=== PATIENT | male | born 1995 | race Caucasian/White ===

== ENCOUNTER 2018-07-08 20:10 | Emergency (ER) | payer MEDICAID ==
[~2018-07-08] VITALS: Ht 170.2 cm; Wt 56.1 kg
[2018-07-08 20:15] VITALS: BP 127/83
[2018-07-08] MEDS ORDERED: ondansetron 4mg rapidly disintigrating tab PO ONE (20:35)
[2018-07-08] MEDS ORDERED: famotidine 10mg tablet PO ONE (20:35)
[2018-07-08] MEDS ORDERED: famotidine 10mg tablet PO SCH (20:35)
[2018-07-08 20:40] LABS: CLARITY,URINE CLEAR (Clear); COLOR,URINE YELLOW (Yellow); GLUCOSE, URINE NEGATIVE (Neg); KETONES,URINE NEGATIVE (Neg); LEUKOCYTE ESTERASE ,URINE NEGATIVE (Neg); NITRITES, URINE NEGATIVE (Neg); OCCULT BLOOD,URINE NEGATIVE (Neg); PH,URINE 6.5 (4.8-8.0); PROTEIN,URINE TRACE mg/dl (Neg); UROBILINOGEN,URINE 0.2 E.U/dL (0.2-1.0)
[2018-07-08] MEDS ORDERED: famotidine 20mg tablet PO ONE (20:40)
[2018-07-08 20:41] LABS: UA COLLECTION TYPE CLN CATCH MIDSTREAM
[2018-07-08 20:47] LABS: BACTERIA,URINE FEW /HPF (Neg); MUCUS STRANDS MODERATE /LPF (Neg); RBC,URINE NONE SEEN /HPF (0-2); SQUAMOUS EPITHELIAL CELL,UR FEW /LPF (FEW); WBC,URINE 0-4 /HPF (0-4)
[2018-07-08 20:48] LABS: AMORPHOUS URATES 1+; HYALINE CASTS 0-3 /LPF (NEGATIVE)
[2018-07-08 21:03] LABS: BASOPHILS % (AUTO) 0.2 % (0-1); EOSINOPHILS # (AUTO) 0.1 X10'3 (0-0.9); HEMATOCRIT 46.3 % (42.0-52.0); HEMOGLOBIN 15.1 g/dl (14.0-17.9); LYMPHOCYTES # (AUTO) 3.1 X10'3 (1.1-4.8); LYMPHOCYTES % (AUTO) 36.7 % (21-51); MEAN CORPUSCULAR HEMOGLOBIN 30.5 PG (27.0-31.0); MEAN CORPUSCULAR HGB CONC 32.7 % (33.0-36.5); MEAN CORPUSCULAR VOLUME 93.3 FL (78-98); MEAN PLATELET VOLUME 8.1 FL (7.4-10.4); MONOCYTES # (AUTO) 0.4 X10'3 (0-0.9); MONOCYTES % (AUTO) 5.2 % (2-12); NEUTROPHILS # (AUTO) 4.8 X10'3 (1.8-7.7); NEUTROPHILS % (AUTO) 56.9 % (42-75); PLATELET COUNT 191 X10'3 (140-440); RED BLOOD COUNT 4.96 X10'6 (4.70-6.10); RED CELL DISTRIBUTION WIDTH 13.9 % (11.5-14.5); WHITE BLOOD COUNT 8.5 X10'3 (4.5-11.0)
[2018-07-08 21:16] LABS: INR 1.1 INR; PROTHROMBIN TIME 10.7 SECONDS (9.0-12.0)
[2018-07-08 21:17] LABS: ALANINE AMINOTRANSFERASE 32 U/L (12-78); ALBUMIN 4.3 G/DL (3.4-5.0); ALBUMIN/GLOBULIN RATIO 1.3 (1.1-1.5); ALKALINE PHOSPHATASE 84 IU/L (46-116); ANION GAP 9 (8-16); ASPARTATE AMINO TRANSFERASE 19 U/L (10-37); BILIRUBIN,TOTAL 0.7 MG/DL (0.1-1.0); BLOOD UREA NITROGEN 15 MG/DL (7-18); BUN/CREATININE RATIO 13.3 (5.4-32.0); CHLORIDE 104 MMOL/L (99-107); CREATININE 1.13 MG/DL (0.60-1.10); GLUCOSE 92 MG/DL (70-104); LIPASE 459 U/L (73-393); SODIUM 140 MMOL/L (135-145); TOTAL CARBON DIOXIDE 27.3 MMOL/L (24-32); TOTAL PROTEIN 7.6 G/DL (6.4-8.2); eGFR 81 ML/MIN
[2018-07-08] MEDS ORDERED: ONDA4TAB9 SL (21:22)
[2018-07-08] MEDS ORDERED: LORazepam 1 MG tablet PO ONE (21:30)
== END 2018-07-08 21:37 | disposition home or self-care (01) ==
LOC: ER 20:11
DX: K92.0 Hematemesis (principal)
CPT/HCPCS: 36415; 71045; 80053; 81001; 83690; 85025; 85610; 99285

== ENCOUNTER 2018-07-08 22:18 | Emergency (ER) | payer MEDICAID ==
[~2018-07-08] VITALS: Ht 170.2 cm; Wt 56.7 kg
[~2018-07-08 22:18] MED LIST: ONDA4TAB9 SL
[2018-07-08 22:38] VITALS: BP 115/68
== END 2018-07-09 00:08 | disposition home or self-care (01) ==
LOC: ER 22:19
DX: R55 Syncope and collapse (principal); F41.0 Panic disorder [episodic paroxysmal anxiety]
CPT/HCPCS: 70450; 93005; 99284

== ENCOUNTER 2018-08-28 10:11 | Inpatient (IN) | payer MEDICAID ==
[~2018-08-28] VITALS: Ht 170.2 cm; Wt 49.1 kg
[2018-08-28] MEDS ORDERED: normal saline 1000ML IV soln IVB ONE ×2 (10:15)
--- NOTE | 2018-08-28 10:21 | NUR ---
RT IN ROOM 1021
[2018-08-28 10:27] LABS: EOSINOPHILS % (AUTO) 0.1 % (0-6); MEAN CORPUSCULAR HGB CONC 33.8 % (33.0-36.5)
--- NOTE | 2018-08-28 10:29 | NUR ---
PAGED RT FOR STAT ABG [id number]
[2018-08-28 10:30] LABS: BASOPHILS # (AUTO) 0.4 X10'3 (0-0.2); BASOPHILS % (AUTO) 1.8 % (0-1); HEMATOCRIT 49.3 % (42.0-52.0); HEMOGLOBIN 16.6 g/dl (14.0-17.9); LYMPHOCYTES # (AUTO) 0.9 X10'3 (1.1-4.8); LYMPHOCYTES % (AUTO) 4.1 % (21-51); MEAN CORPUSCULAR HEMOGLOBIN 31.3 PG (27.0-31.0); MEAN CORPUSCULAR VOLUME 92.5 FL (78-98); MONOCYTES % (AUTO) 4.6 % (2-12); NEUTROPHILS % (AUTO) 89.4 % (42-75); PLATELET COUNT 200 X10'3 (140-440); RED BLOOD COUNT 5.33 X10'6 (4.70-6.10); RED CELL DISTRIBUTION WIDTH 13.5 % (11.5-14.5); WHITE BLOOD COUNT 22.3 X10'3 (4.5-11.0)
[2018-08-28] MEDS ORDERED: CefTRIAXone 2gm/D5W 50ml 50 ML IV ONE (10:35)
[2018-08-28] MEDS ORDERED: azithromycin/NS 500mg/250ml 250 ML IV ONE (10:35)
[2018-08-28 10:46] LABS: ABG BASE EXCESS -5.8 mmol/L (-2.0-3.0); ABG HCO3 20.8 mmol/L (22.0-26.0); ABG OXYGEN SATURATION 91.6 % (95-98); ABG PCO2 (T) 44.9 mmHg (35.0-48.0); ABG PH (T) 7.284 (7.350-7.450); ABG PO2 (T) 65.1 mmHg (83-108); ALLEN'S TEST Positive; FCOHb 4.6 % (0.5-1.5); FLOW 15 L/min; FMetHb 0.1 % (0.3-1.12); FO2Hb 87.3 % (94-100); PATIENT TEMPERATURE 37.2; TOTAL HEMOGLOBIN 14.9 G/dl (14.0-18.0)
[2018-08-28 10:53] LABS: CLARITY,URINE CLEAR (Clear); COLOR,URINE YELLOW (Yellow); GLUCOSE, URINE NEGATIVE (Neg); KETONES,URINE NEGATIVE (Neg); LEUKOCYTE ESTERASE ,URINE NEGATIVE (Neg); NITRITES, URINE NEGATIVE (Neg); OCCULT BLOOD,URINE LARGE (Neg); PROTEIN,URINE TRACE mg/dl (Neg); UROBILINOGEN,URINE 0.2 E.U/dL (0.2-1.0)
[2018-08-28 10:55] LABS: UA COLLECTION TYPE FOLEY CATH
[2018-08-28 10:57] LABS: PLATELET ESTIMATE NORMAL; TOTAL CELLS COUNTED 100
[2018-08-28 10:59] LABS: URINE AMPHETAMINE SCREEN NEGATIVE (Neg); URINE BARBITUATE SCREEN NEGATIVE (Neg); URINE BENZODIAZEPINES SCREEN POSITIVE (Neg); URINE CANNABINOID SCREEN POSITIVE (Neg); URINE COCAINE SCREEN NEGATIVE (Neg); URINE METHADONE SCREEN POSITIVE (Neg); URINE OPIATE SCREEN NEGATIVE (Neg); URINE PHENCYCLIDINE SCREEN NEGATIVE (Neg)
[2018-08-28 11:06] LABS: BACTERIA,URINE NONE SEEN /HPF (Neg); RBC,URINE 0-2 /HPF (0-2); SQUAMOUS EPITHELIAL CELL,UR NONE SEEN /LPF (FEW)
[2018-08-28 11:22] LABS: INR 1.1 INR; PARTIAL THROMBOPLASTIN TIME 29 SECONDS (22-32); PROTHROMBIN TIME 10.9 SECONDS (9.0-12.0)
[2018-08-28 11:25] LABS: ALANINE AMINOTRANSFERASE 63 U/L (12-78); ALBUMIN 3.6 G/DL (3.4-5.0); ALBUMIN/GLOBULIN RATIO 1.1 (1.1-1.5); ALKALINE PHOSPHATASE 87 IU/L (46-116); ANION GAP 15 (8-16); ASPARTATE AMINO TRANSFERASE 64 U/L (10-37); BILIRUBIN,TOTAL 0.6 MG/DL (0.1-1.0); BLOOD UREA NITROGEN 13 MG/DL (7-18); BUN/CREATININE RATIO 10.8 (5.4-32.0); CALCIUM 7.9 MG/DL (8.5-10.1); CHLORIDE 103 MMOL/L (99-107); GLUCOSE 157 MG/DL (70-104); POTASSIUM 3.8 MMOL/L (3.5-5.1); SODIUM 140 MMOL/L (135-145); TOTAL CARBON DIOXIDE 21.7 MMOL/L (24-32); TOTAL PROTEIN 6.9 G/DL (6.4-8.2); eGFR 76 ML/MIN
[2018-08-28] MEDS ORDERED: iohexol 350MG/ML 100ml bottle IV ONE (11:28)
[2018-08-28 11:32] LABS: ETHANOL < 0.010 GM/DL (0.0-0.010)
[2018-08-28] MEDS ORDERED: DULO20CA17 PO (11:38)
[2018-08-28] MEDS ORDERED: ALPR1TAB7 PO (11:38)
[2018-08-28] MEDS ORDERED: normal saline 1000ml 1,000 ML IV ONE (12:05)
[2018-08-28 13:01] LABS: ABG BASE EXCESS -6.1 mmol/L (-2.0-3.0); ABG HCO3 22.5 mmol/L (22.0-26.0); ABG OXYGEN SATURATION 93.2 % (95-98); ABG PCO2 (T) 57.1 mmHg (35.0-48.0); ABG PH (T) 7.213 (7.350-7.450); ABG PO2 (T) 76.7 mmHg (83-108); ALLEN'S TEST Positive; FCOHb 2.7 % (0.5-1.5); FLOW 10 L/min; FMetHb 0.3 % (0.3-1.12); FO2Hb 90.4 % (94-100); TOTAL HEMOGLOBIN 14.6 G/dl (14.0-18.0)
--- NOTE | 2018-08-28 13:19 | NUR ---
[id number]
[2018-08-28] MEDS ORDERED: etomidate 2mg/ml inj. ONE (14:00)
[2018-08-28] MEDS ORDERED: rocuronium 10mg/ml inj IV ONE (14:00)
--- NOTE | 2018-08-28 16:52 | NUR ---
OFF BIPAP PLACED ON 4LNC 94% PT IS APPROPRIATE HR 115, RR 20
--- NOTE | 2018-08-28 17:14 | NUR ---
rt took off bipap hr and saturation and mentation improved
[2018-08-28 17:50] LABS: ABG BASE EXCESS -0.3 mmol/L (-2.0-3.0); ABG HCO3 26.8 mmol/L (22.0-26.0); ABG OXYGEN SATURATION 92.7 % (95-98); ABG PCO2 (T) 53.5 mmHg (35.0-48.0); ABG PH (T) 7.317 (7.350-7.450); ABG PO2 (T) 66.6 mmHg (83-108); ALLEN'S TEST Positive; FCOHb 1.2 % (0.5-1.5); FMetHb 0.3 % (0.3-1.12); FO2Hb 91.3 % (94-100); TOTAL HEMOGLOBIN 14.8 G/dl (14.0-18.0)
--- NOTE | 2018-08-28 18:50 | NUR ---
I have received report from Nydia, ER nurse and had the opportunity to ask questions and assume patient care.
[2018-08-28 19:00] VITALS: BP 129/73
--- NOTE | 2018-08-28 19:30 | NUR ---
PT arrived to unit via gurney. PT was able to get off of gurney and move to ICU bed himself, connected to bedside monitor . PT is a/o answering questions. PT is receiving 6L O2 to NC, tolerating well, O2 sat >95%. VSS. PT has multiple piercing, attempted to replace nipple piercings but was unsuccessful d/t him dropping an attachment on the floor. PT does not have any belongings with him, his father took them home with him. Bed is locked and low. Call light is within reach. Will continue to monitor.
[2018-08-28] MEDS ORDERED: potassium Cl 20 mEq SR tablet PO PRN ×2 (19:55)
[2018-08-28] MEDS ORDERED: ondansetron/PF 4mg/2ml inj IV PRN (19:55)
[2018-08-28] MEDS ORDERED: potassium Cl 40MEQ/NS 500ml 500 ML IV PRN ×2 (19:55)
[2018-08-28] MEDS ORDERED: ipratropium/albuterol 3ml nebule NEB PRN (19:55)
[2018-08-28] MEDS ORDERED: magnesium hydroxide 30ml (MOM) UD suspension PO PRN (19:55)
[2018-08-28] MEDS ORDERED: acetaminophen 325mg tablet PO PRN ×2 (19:55)
[2018-08-28 20:00] VITALS: BP 112/69
[2018-08-28] MEDS: K, MAG and/or Phos replacement - Verify level? MC SCH (20:00)
[2018-08-28] MEDS ORDERED: HYDROcodone/acetaminophen 10/325mg tab PO PRN (20:05)
[2018-08-28] MEDS ORDERED: HYDROcodone/acetaminophen 5mg/325mg tablet PO PRN (20:05)
[2018-08-28 21:00] VITALS: BP 133/76
[2018-08-28] MEDS: heparin, porcine 5000 units/ml vial SQ SCH (21:12)
[2018-08-28] MEDS: docusate sod 100mg capsule PO SCH (21:12)
[2018-08-28 22:00] VITALS: BP 111/67
--- NOTE | 2018-08-28 22:30 | NUR ---
PT resting with no s/s of distress noted at this time. VSS. PT is sleepy, attempted to use the urinal but fell asleep during and dumped urine out all over himself. Gown and linen changed. Bed is locked and low. Call light is within reach. Will continue to monitor.
[2018-08-28 23:00] VITALS: BP 114/64
[2018-08-29] VITALS (15 sets, daily range): BP systolic 96–119; BP diastolic 49–64
--- NOTE | 2018-08-29 01:00 | NUR ---
PT is sleeping with no s/s of distress noted. O2 at 4L to NC, PT tolerating well, O2 sat >94%. Bed is locked and low. Call light is within reach. Will continue to monitor.
--- NOTE | 2018-08-29 06:45 | NUR ---
Patient in room ICU 2039. I have received report from Gabriela BOWLING and had the opportunity to ask questions and assume patient care.
--- NOTE | 2018-08-29 06:46 | NUR ---
Problems reprioritized. Patient report given, questions answered & plan of care reviewed with Anca BOWLING.
[2018-08-29] MEDS ORDERED: pantoprazole 40mg Tablet.DR PO SCH (07:30)
[2018-08-29 07:43] LABS: BASOPHILS % (AUTO) 0.2 % (0-1); EOSINOPHILS # (AUTO) 0.1 X10'3 (0-0.9); EOSINOPHILS % (AUTO) 0.6 % (0-6); HEMATOCRIT 39.8 % (42.0-52.0); HEMOGLOBIN 13.5 g/dl (14.0-17.9); LYMPHOCYTES # (AUTO) 1.3 X10'3 (1.1-4.8); LYMPHOCYTES % (AUTO) 10.4 % (21-51); MEAN CORPUSCULAR HEMOGLOBIN 31.3 PG (27.0-31.0); MEAN CORPUSCULAR HGB CONC 33.8 % (33.0-36.5); MEAN CORPUSCULAR VOLUME 92.4 FL (78-98); MEAN PLATELET VOLUME 8.8 FL (7.4-10.4); MONOCYTES # (AUTO) 1.1 X10'3 (0-0.9); MONOCYTES % (AUTO) 8.7 % (2-12); NEUTROPHILS # (AUTO) 10.2 X10'3 (1.8-7.7); NEUTROPHILS % (AUTO) 80.1 % (42-75); PLATELET COUNT 126 X10'3 (140-440); RED BLOOD COUNT 4.31 X10'6 (4.70-6.10); RED CELL DISTRIBUTION WIDTH 13.2 % (11.5-14.5); WHITE BLOOD COUNT 12.7 X10'3 (4.5-11.0)
[2018-08-29 07:56] LABS: ALANINE AMINOTRANSFERASE 66 U/L (12-78); ALBUMIN 3.1 G/DL (3.4-5.0); ALBUMIN/GLOBULIN RATIO 0.9 (1.1-1.5); ALKALINE PHOSPHATASE 67 IU/L (46-116); ANION GAP 10 (8-16); ASPARTATE AMINO TRANSFERASE 114 U/L (10-37); BLOOD UREA NITROGEN 13 MG/DL (7-18); BUN/CREATININE RATIO 12.3 (5.4-32.0); CALCIUM 8.6 MG/DL (8.5-10.1); CHLORIDE 102 MMOL/L (99-107); CREATININE 1.06 MG/DL (0.60-1.10); GLUCOSE 93 MG/DL (70-104); MAGNESIUM 1.6 MG/DL (1.5-2.4); PHOSPHORUS 2.3 MG/DL (2.3-4.5); POTASSIUM 3.6 MMOL/L (3.5-5.1); SODIUM 139 MMOL/L (135-145); TOTAL CARBON DIOXIDE 27.2 MMOL/L (24-32); TOTAL PROTEIN 6.5 G/DL (6.4-8.2); eGFR 87 ML/MIN
[2018-08-29 07:57] LABS: INR 1.2 INR; PARTIAL THROMBOPLASTIN TIME 33 SECONDS (22-32)
[2018-08-29] MEDS ORDERED: azithromycin/NS 500mg/250ml 250 ML IV SCH (08:00)
[2018-08-29] MEDS ORDERED: CefTRIAXone 2gm/D5W 50ml 50 ML IV SCH (08:00)
[2018-08-29] MEDS: K, MAG and/or Phos replacement - Verify level? MC SCH (08:00)
[2018-08-29] MEDS: docusate sod 100mg capsule PO SCH (09:05)
[2018-08-29] MEDS: heparin, porcine 5000 units/ml vial SQ SCH (09:07)
[2018-08-29] MEDS ORDERED: FLU VACC QUAD 2018(5 YR UP)/PF 60 MCG/0.5 ML SYRINGE IM ONE (10:00)
--- NOTE | 2018-08-29 10:35 | NUR ---
Physician rounding at this time, made MD aware of patient status. MD states he can discharge home.
--- NOTE | 2018-08-29 13:00 | NUR ---
Spoke to Blanca Lamb regarding patient's discharge, states she will put orders in.
--- NOTE | 2018-08-29 13:27 | NUR ---
Malnutrition Consult: Pt admit sp/ methadone and benzo OD w/ hx anxiety; not intentional suicide attempt per MD note. Pt recently lost mother. Pt has no edema/wounds, weakness, or wt loss hx maintaining low body weight. PO pending. At this time lacks 2 minimum criteria for malnutrition; will monitor for PO hx and additional criteria this admit. Addendum: 08/29/18 at [address] Amended: Links added.
--- NOTE | 2018-08-29 14:30 | NUR ---
Patient discharged via W/C and private vehicle without event at this time. Discussed discharge instructions and education for going home, sent home incentive spirometer in which patient was performing very well at, no new medications ordered, questions answered, IV removed with cath intact and Tele dc'd. Patient eager to go home.
== END 2018-08-29 14:28 | disposition home or self-care (01) | DRG 812 ==
LOC: ER 10:12 → ED HOLD 17:22 → ICU 2S 19:12
PROVIDERS: ADMIT Internal Medicine Critical Care Medicine; ATTEND Internal Medicine Critical Care Medicine
PROC: 5A09357 Assistance with Respiratory Ventilation, Less than 24 Consecutive Hours, Continuous Positive Airway Pressure (ICD-10-PCS; principal; 2018-08-28)
PROC: B32T1ZZ Computerized Tomography (CT Scan) of Left Pulmonary Artery using Low Osmolar Contrast (ICD-10-PCS; 2018-08-28)
PROC: B3201ZZ Computerized Tomography (CT Scan) of Thoracic Aorta using Low Osmolar Contrast (ICD-10-PCS; 2018-08-28)
PROC: B32S1ZZ Computerized Tomography (CT Scan) of Right Pulmonary Artery using Low Osmolar Contrast (ICD-10-PCS; 2018-08-28)
PROC: 3E02340 Introduction of Influenza Vaccine into Muscle, Percutaneous Approach (ICD-10-PCS; 2018-08-29)
DX: T40.3X1A Poisoning by methadone, accidental (unintentional), initial encounter (principal); A41.9 Sepsis, unspecified organism; J18.9 Pneumonia, unspecified organism; T42.4X1A Poisoning by benzodiazepines, accidental (unintentional), initial encounter; R32 Unspecified urinary incontinence; F41.9 Anxiety disorder, unspecified; R09.02 Hypoxemia; Z23 Encounter for immunization; Z79.899 Other long term (current) drug therapy; Y92.89 Other specified places as the place of occurrence of the external cause
CPT/HCPCS: 36415; 36600; 71045; 71275; 80053; 80305; 80320; 81001; 82803; 83605; 83735; 83880; 84100; 84145; 85018; 85025; 85610; 85730; 87040; 87070; 87077; 87088; 87186; 93005; 94660; 94760; 96365; 96368; 99291; 99292; G0378; J0456; J0696; J1644; J3490; Q2037; Q9967

== ENCOUNTER 2019-08-18 06:13 | Emergency (ER) | payer MEDICAID ==
[~2019-08-18] VITALS: Ht 175.3 cm; Wt 61.5 kg
[~2019-08-18 06:13] MED LIST changes: +ALPR1TAB7 PO; +DULO20CA18 PO; -ONDA4TAB9 SL
[2019-08-18] MEDS ORDERED: haloperidol lactate 5mg/ml inj IV ONE (06:35)
[2019-08-18] MEDS ORDERED: LIDOcaine 4% (40 mg/ml) topical solution 50ml MM ONE (06:35)
[2019-08-18] MEDS ORDERED: haloperidol lactate 5mg/ml inj IM ONE (06:45)
--- NOTE | 2019-08-18 06:52 | NUR ---
APPLY OXYGEN NC AT 3 LITERS ORDERED BY ANTONELLA ZARAGOZA.
[2019-08-18] MEDS ORDERED: METO-292 PO (07:32)
[2019-08-18 07:46] VITALS: BP 157/81
== END 2019-08-18 07:48 | disposition home or self-care (01) ==
LOC: ER 06:14
DX: G43.909 Migraine, unspecified, not intractable, without status migrainosus (principal); Z79.899 Other long term (current) drug therapy
CPT/HCPCS: 96372; 99283; J1630

== ENCOUNTER 2020-04-03 12:22 | Emergency (ER) | payer MEDICAID ==
[~2020-04-03] VITALS: Ht 175.3 cm; Wt 63.6 kg
[~2020-04-03 12:22] MED LIST changes: +METO-292 PO
[2020-04-03 12:43] VITALS: BP 133/82
== END 2020-04-03 13:10 | disposition home or self-care (01) ==
LOC: ER 12:23
DX: S39.91XA Unspecified injury of abdomen, initial encounter (principal); G43.909 Migraine, unspecified, not intractable, without status migrainosus; F41.9 Anxiety disorder, unspecified; Z79.899 Other long term (current) drug therapy; X58.XXXA Exposure to other specified factors, initial encounter; Y93.89 Activity, other specified; Y92.89 Other specified places as the place of occurrence of the external cause; Y99.8 Other external cause status
CPT/HCPCS: 99282

== ENCOUNTER 2020-12-14 08:14 | Emergency (ER) | payer MEDICAID ==
[~2020-12-14] VITALS: Ht 175.3 cm; Wt 63.6 kg
[2020-12-14] MEDS ORDERED: dexamethasone sod phosphate 10mg/ml inj IV STA (08:51)
[2020-12-14] MEDS ORDERED: metoclopramide 5 mg/ml inj IV ONE (08:55)
[2020-12-14] MEDS ORDERED: LORazepam 2 mg/ml vial IV ONE (08:55)
[2020-12-14] MEDS ORDERED: normal saline 1000ML IV soln IVB ONE (08:55)
[2020-12-14 09:36] LABS: BASOPHILS % (AUTO) 0.7 % (0-1); EOSINOPHILS # (AUTO) 0.1 X10'3 (0-0.9); EOSINOPHILS % (AUTO) 1.9 % (0-6); HEMATOCRIT 46.9 % (42.0-52.0); HEMOGLOBIN 15.5 g/dl (14.0-17.9); LYMPHOCYTES # (AUTO) 1.9 X10'3 (1.1-4.8); LYMPHOCYTES % (AUTO) 38.2 % (21-51); MEAN CORPUSCULAR HEMOGLOBIN 31.8 PG (27.0-31.0); MEAN CORPUSCULAR HGB CONC 33.1 g/dL (33.0-36.5); MEAN CORPUSCULAR VOLUME 96.1 FL (78-98); MEAN PLATELET VOLUME 7.6 FL (7.4-10.4); MONOCYTES # (AUTO) 0.4 X10'3 (0-0.9); MONOCYTES % (AUTO) 7.9 % (2-12); NEUTROPHILS # (AUTO) 2.6 X10'3 (1.8-7.7); NEUTROPHILS % (AUTO) 51.3 % (42-75); PLATELET COUNT 241 X10'3 (140-440); RED BLOOD COUNT 4.88 X10'6 (4.70-6.10); RED CELL DISTRIBUTION WIDTH 13.1 % (11.5-14.5); WHITE BLOOD COUNT 5.1 X10'3 (4.5-11.0)
[2020-12-14 09:52] LABS: ALANINE AMINOTRANSFERASE 31 U/L (12-78); ALBUMIN 4.4 G/DL (3.4-5.0); ALBUMIN/GLOBULIN RATIO 1.2 (1.1-1.5); ALKALINE PHOSPHATASE 76 IU/L (46-116); ANION GAP 17 (8-16); ASPARTATE AMINO TRANSFERASE 28 U/L (10-37); BILIRUBIN,TOTAL 0.7 MG/DL (0.1-1.0); BLOOD UREA NITROGEN 13 MG/DL (7-18); BUN/CREATININE RATIO 12.3 (5.4-32.0); CALCIUM 9.3 MG/DL (8.5-10.1); CHLORIDE 104 MMOL/L (99-107); CREATININE 1.06 MG/DL (0.60-1.10); GLUCOSE 100 MG/DL (70-104); POTASSIUM 3.6 MMOL/L (3.5-5.1); SODIUM 142 MMOL/L (135-145); TOTAL CARBON DIOXIDE 21.2 MMOL/L (24-32); eGFR 86 ML/MIN
[2020-12-14] MEDS ORDERED: ketorolac trometh. 30mg/ml inj. IV ONE (11:15)
--- NOTE | 2020-12-14 12:00 | NUR ---
relieving RN for break, medicated pt per MD order, pt c/o headache 12/09, has ride home with family
[2020-12-14 12:22] VITALS: BP 140/94
== END 2020-12-14 12:25 | disposition home or self-care (01) ==
LOC: ER 08:15
DX: G43.909 Migraine, unspecified, not intractable, without status migrainosus (principal); F41.9 Anxiety disorder, unspecified; R11.2 Nausea with vomiting, unspecified; Z79.899 Other long term (current) drug therapy
CPT/HCPCS: 36415; 70450; 80053; 85025; 85651; 96361; 96374; 96375; 99285; J1100; J1885; J2060; J2765; J7030

== ENCOUNTER 2022-11-26 04:10 | Emergency (ER) | payer MEDICAID ==
[~2022-11-26] VITALS: Ht 175.3 cm; Wt 61.3 kg
[2022-11-26] MEDS ORDERED: triamcinolone acetonide 40mg/ml inj IJ ONE (05:30)
[2022-11-26] MEDS ORDERED: LIDOcaine 1% 30ml preserv. free vial IJ STA (05:30)
[2022-11-26] MEDS ORDERED: LIDOCAINE 2%/EPI 1:100,000 inj. Multi-dose 20 ML VIAL IJ STA (05:42)
[2022-11-26 06:09] VITALS: BP 140/90
== END 2022-11-26 06:11 | disposition home or self-care (01) ==
LOC: ER 04:11
DX: M25.511 Pain in right shoulder (principal); F17.200 Nicotine dependence, unspecified, uncomplicated; F41.9 Anxiety disorder, unspecified; G43.909 Migraine, unspecified, not intractable, without status migrainosus; Z79.899 Other long term (current) drug therapy; X58.XXXA Exposure to other specified factors, initial encounter; Y93.89 Activity, other specified; Y92.89 Other specified places as the place of occurrence of the external cause; Y99.8 Other external cause status
CPT/HCPCS: 20610; 23650; 73030; 99284

== ENCOUNTER 2023-02-04 04:15 | Emergency (ER) | payer MEDICAID ==
[~2023-02-04] VITALS: Ht 175.3 cm; Wt 63.6 kg
[2023-02-04 04:19] VITALS: BP 133/100
[2023-02-04] MEDS ORDERED: ketorolac trometh. 30mg/ml inj. IV ONE (04:40)
[2023-02-04] MEDS ORDERED: proCHLORperazine 10 MG/2 ml inj IV ONE (04:40)
[2023-02-04] MEDS ORDERED: acetaminophen 325mg tablet PO ONE (04:40)
[2023-02-04] MEDS ORDERED: normal saline 1000ml 1,000 ML IV ONE (04:40)
--- NOTE | 2023-02-04 04:47 | NUR ---
ivp given by hemodialysis charge nurse
--- NOTE | 2023-02-04 06:09 | NUR ---
iv dc'd pt being discharged dressing applied
== END 2023-02-04 06:11 | disposition home or self-care (01) ==
LOC: ER 04:15
DX: G43.909 Migraine, unspecified, not intractable, without status migrainosus (principal)
CPT/HCPCS: 96361; 96374; 96375; 99284; J0780; J1885; J7030

== ENCOUNTER 2023-05-01 19:40 | Emergency (ER) | payer MEDICAID ==
[~2023-05-01] VITALS: Ht 175.3 cm; Wt 55.6 kg
[2023-05-01 19:50] VITALS: TEMP 97.9
--- NOTE | 2023-05-01 20:12 | NUR ---
PT PRESENTS TO THE ER WITH MIGRAINE PT STATES " I SEE A NEUROLOGIST IN [facility] FOR MY MIGRAINES BUT THEY HAVE NEVER BEEN ABLE TO FIGURE IT OUT, BENITA TRIED EVERY MEDICATION AND NOTHING HELPS." PT CURRENTLY N/V IN ROOM.
[2023-05-01] MEDS ORDERED: ondansetron 4mg rapidly disintigrating tab PO ONE (20:15)
[2023-05-01 20:41] VITALS: BP 116/91; PULSE 80; O2SAT 100
--- NOTE | 2023-05-01 21:13 | NUR ---
PO ZOFRAN 4MG INEFFECTIVE, PROVIDER TO BE NOTIFIED.
[2023-05-01] MEDS ORDERED: metoclopramide 5 mg/ml inj IM ONE (21:30)
[2023-05-01] MEDS ORDERED: diphenhydrAMINE 50 mg/ml inj IM ONE (21:30)
[2023-05-01] MEDS ORDERED: ketorolac tromethamine 15mg/ml inj. IM ONE (21:30)
[2023-05-01 21:41] VITALS: RESP 17
[2023-05-01] MEDS ORDERED: haloperidol lactate 5mg/ml inj IM ONE (22:05)
[2023-05-01] MEDS ORDERED: LORazepam 2 mg/ml vial IM ONE (22:05)
== END 2023-05-01 22:12 | disposition home or self-care (01) ==
LOC: ER 19:42
DX: G43.909 Migraine, unspecified, not intractable, without status migrainosus (principal); Z79.899 Other long term (current) drug therapy
CPT/HCPCS: 96372; 99284; J1200; J1630; J1885; J2060; J2765; J7030

== ENCOUNTER 2023-06-07 00:26 | Emergency (ER) | payer MEDICAID ==
[~2023-06-07] VITALS: Ht 175.3 cm; Wt 62.7 kg
[2023-06-07 01:28] VITALS: TEMP 98
[2023-06-07] MEDS ORDERED: metoclopramide 5 mg/ml inj IV ONE (01:35)
[2023-06-07] MEDS ORDERED: normal saline 1000ML IV soln IVB ONE (01:35)
[2023-06-07] MEDS ORDERED: diphenhydrAMINE 50 mg/ml inj IV ONE (01:35)
[2023-06-07] MEDS ORDERED: TRAZ-251 PO (01:44)
[2023-06-07] MEDS ORDERED: SERT-433 PO (01:44)
[2023-06-07] MEDS ORDERED: BUSP7.5T5 PO (01:44)
[2023-06-07] MEDS ORDERED: acetaminophen 1,000mg/100ml IV 100 ML IV SCH (02:00)
[2023-06-07 02:45] VITALS: BP 130/89; PULSE 94; RESP 16; O2SAT 95
== END 2023-06-07 02:54 | disposition home or self-care (01) ==
LOC: ER 00:26
DX: G43.909 Migraine, unspecified, not intractable, without status migrainosus (principal)
CPT/HCPCS: 96365; 96375; 99284; J0131; J1200; J2765; J7030

== ENCOUNTER 2023-06-15 03:39 | Emergency (ER) | payer MEDICAID ==
[~2023-06-15] VITALS: Ht 175.3 cm; Wt 62.7 kg
[~2023-06-15 03:39] MED LIST changes: -ALPR1TAB7 PO; +BUSP7.5T5 PO; -DULO20CA18 PO; -METO-292 PO; +SERT-433 PO; +TRAZ-251 PO
[2023-06-15 03:49] VITALS: TEMP 97.8
[2023-06-15] MEDS ORDERED: normal saline 1000ML IV soln IVB ONE (03:55)
[2023-06-15 04:34] LABS: ALANINE AMINOTRANSFERASE 33 U/L (12-78); ALBUMIN 3.5 G/DL (3.4-5.0); ALKALINE PHOSPHATASE 78 IU/L (46-116); ANION GAP 10 (8-16); ASPARTATE AMINO TRANSFERASE 24 U/L (10-37); BILIRUBIN,TOTAL 0.1 MG/DL (0.1-1.0); BLOOD UREA NITROGEN 21 MG/DL (7-18); CALCIUM 8.7 MG/DL (8.5-10.1); CHLORIDE 104 MMOL/L (99-107); POTASSIUM 3.6 MMOL/L (3.5-5.1); SODIUM 139 MMOL/L (135-145); TOTAL CARBON DIOXIDE 25.1 MMOL/L (24-32); eCRCL 98 ML/MIN; eGFR 90 ML/MIN
[2023-06-15 04:37] LABS: GLUCOSE 100 MG/DL (70-104); TOTAL PROTEIN 7.1 G/DL (6.4-8.2)
[2023-06-15 04:40] LABS: BASOPHILS % (AUTO) 0.4 % (0-1); EOSINOPHILS # (AUTO) 0.1 X10'3 (0-0.9); EOSINOPHILS % (AUTO) 1.4 % (0-6); HEMATOCRIT 40.6 % (42.0-52.0); HEMOGLOBIN 13.5 g/dl (14.0-17.9); LYMPHOCYTES # (AUTO) 4.8 X10'3 (1.1-4.8); LYMPHOCYTES % (AUTO) 46.6 % (21-51); MEAN CORPUSCULAR HEMOGLOBIN 31.6 PG (27.0-31.0); MEAN CORPUSCULAR HGB CONC 33.3 g/dL (33.0-36.5); MEAN CORPUSCULAR VOLUME 94.7 FL (78-98); MEAN PLATELET VOLUME 7.4 FL (7.4-10.4); MONOCYTES # (AUTO) 0.6 X10'3 (0-0.9); MONOCYTES % (AUTO) 5.5 % (2-12); NEUTROPHILS # (AUTO) 4.8 X10'3 (1.8-7.7); NEUTROPHILS % (AUTO) 46.1 % (42-75); PLATELET COUNT 242 X10'3 (140-440); RED BLOOD COUNT 4.28 X10'6 (4.70-6.10); RED CELL DISTRIBUTION WIDTH 13.9 % (11.5-14.5); WHITE BLOOD COUNT 10.4 X10'3 (4.5-11.0)
[2023-06-15 05:48] VITALS: BP 118/86; PULSE 76; RESP 18; O2SAT 99
== END 2023-06-15 05:50 | disposition home or self-care (01) ==
LOC: ER 03:41
DX: E86.0 Dehydration (principal); R55 Syncope and collapse; R56.9 Unspecified convulsions; G43.909 Migraine, unspecified, not intractable, without status migrainosus; H53.489 Generalized contraction of visual field, unspecified eye; F41.9 Anxiety disorder, unspecified; Z79.899 Other long term (current) drug therapy
CPT/HCPCS: 36415; 80053; 83605; 85025; 93005; 96360; 96361; 99284; J7030

== ENCOUNTER 2023-06-26 12:16 | Emergency (ER) | payer MEDICAID ==
[~2023-06-26] VITALS: Ht 172.7 cm; Wt 62.2 kg
[2023-06-26 13:22] LABS: BASOPHILS % (AUTO) 0.3 % (0-1); EOSINOPHILS # (AUTO) 0.1 X10'3 (0-0.9); EOSINOPHILS % (AUTO) 0.6 % (0-6); HEMATOCRIT 44.2 % (42.0-52.0); HEMOGLOBIN 14.6 g/dl (14.0-17.9); LYMPHOCYTES # (AUTO) 1.8 X10'3 (1.1-4.8); MEAN CORPUSCULAR HGB CONC 33.1 g/dL (33.0-36.5); MEAN CORPUSCULAR VOLUME 93.6 FL (78-98); MEAN PLATELET VOLUME 7.9 FL (7.4-10.4); MONOCYTES # (AUTO) 0.7 X10'3 (0-0.9); NEUTROPHILS # (AUTO) 7.5 X10'3 (1.8-7.7); NEUTROPHILS % (AUTO) 74.1 % (42-75); PLATELET COUNT 284 X10'3 (140-440); RED BLOOD COUNT 4.72 X10'6 (4.70-6.10); RED CELL DISTRIBUTION WIDTH 14.1 % (11.5-14.5); WHITE BLOOD COUNT 10.1 X10'3 (4.5-11.0)
[2023-06-26 14:21] LABS: ALANINE AMINOTRANSFERASE 51 U/L (12-78); ALBUMIN 3.8 G/DL (3.4-5.0); ALBUMIN/GLOBULIN RATIO 1.1 (1.1-1.5); ALKALINE PHOSPHATASE 83 IU/L (46-116); ANION GAP 9 (8-16); ASPARTATE AMINO TRANSFERASE 39 U/L (10-37); BILIRUBIN,TOTAL 0.5 MG/DL (0.1-1.0); BLOOD UREA NITROGEN 14 MG/DL (7-18); BUN/CREATININE RATIO 14.9 (10.0-20.0); CALCIUM 9.2 MG/DL (8.5-10.1); CHLORIDE 103 MMOL/L (99-107); CREATININE 0.94 MG/DL (0.60-1.10); GLUCOSE 97 MG/DL (70-104); SODIUM 138 MMOL/L (135-145); TOTAL CARBON DIOXIDE 26.4 MMOL/L (24-32); TOTAL PROTEIN 7.3 G/DL (6.4-8.2); eCRCL 104 ML/MIN; eGFR > 90 ML/MIN
[2023-06-26 14:52] VITALS: BP 112/78; PULSE 83; RESP 16; TEMP 98.3; O2SAT 100
== END 2023-06-26 14:56 | disposition home or self-care (01) ==
LOC: ER 12:18
DX: R55 Syncope and collapse (principal); E86.0 Dehydration; H53.483 Generalized contraction of visual field, bilateral
CPT/HCPCS: 36415; 71045; 80053; 85025; 93005; 99285

== ENCOUNTER 2023-07-20 22:45 | Emergency (ER) | payer MEDICAID ==
[~2023-07-20] VITALS: Ht 172.7 cm; Wt 64.5 kg
[2023-07-20] MEDS ORDERED: diphenhydrAMINE 50 mg/ml inj IV ONE (23:00)
[2023-07-20] MEDS ORDERED: normal saline 1000ML IV soln IVB ONE (23:00)
[2023-07-20] MEDS ORDERED: acetaminophen 325mg tablet PO ONE (23:00)
[2023-07-20] MEDS ORDERED: metoclopramide 5 mg/ml inj IV ONE (23:00)
[2023-07-21] MEDS ORDERED: ketorolac tromethamine 15mg/ml inj. IV ONE (00:30)
[2023-07-21 00:57] VITALS: BP 120/82; PULSE 92; RESP 16; TEMP 97.9; O2SAT 100
== END 2023-07-21 00:59 | disposition home or self-care (01) ==
LOC: ER 22:46
DX: G43.909 Migraine, unspecified, not intractable, without status migrainosus (principal); F41.9 Anxiety disorder, unspecified
CPT/HCPCS: 96361; 96374; 96375; 99284; J1200; J1885; J2765; J7030

== ENCOUNTER 2023-08-10 09:32 | Emergency (ER) | payer MEDICAID ==
[~2023-08-10] VITALS: Ht 172.7 cm; Wt 63.6 kg
[2023-08-10 09:48] VITALS: BP 134/108; PULSE 78; RESP 18; TEMP 98.3; O2SAT 98
[2023-08-10] MEDS ORDERED: carbamide peroxide 15ml bottle RIGHT EAR SCH (11:15)
== END 2023-08-10 13:10 | disposition home or self-care (01) ==
LOC: ER 09:32
DX: H61.21 Impacted cerumen, right ear (principal); G43.909 Migraine, unspecified, not intractable, without status migrainosus; F41.9 Anxiety disorder, unspecified; Z79.899 Other long term (current) drug therapy; Z98.890 Other specified postprocedural states
CPT/HCPCS: 69210; 99284

== ENCOUNTER 2023-11-11 21:51 | Emergency (ER) | payer MEDICAID ==
[~2023-11-11] VITALS: Ht 172.7 cm; Wt 65.7 kg
[2023-11-11] MEDS ORDERED: OXYC-658 PO (23:48)
[2023-11-11] MEDS ORDERED: IBUP-1984 PO (23:48)
[2023-11-11] MEDS ORDERED: PENI500T2 PO (23:48)
[2023-11-12] MEDS: oxyCODONE SR 10mg (sust. release) tab PO STA (00:02)
[2023-11-12] MEDS: clindamycin 150mg capsule PO STA (00:02)
[2023-11-12 00:05] VITALS: BP 126/95; PULSE 81; RESP 16; TEMP 97.2; O2SAT 99
== END 2023-11-12 00:06 | disposition home or self-care (01) ==
LOC: ER 21:52
DX: K04.7 Periapical abscess without sinus (principal); F41.9 Anxiety disorder, unspecified; G43.909 Migraine, unspecified, not intractable, without status migrainosus; Z79.899 Other long term (current) drug therapy
CPT/HCPCS: 41800; 99284; A6449

== ENCOUNTER 2024-06-03 22:52 | Emergency (ER) | payer MEDICAID ==
[~2024-06-03] VITALS: Ht 172.7 cm; Wt 63.6 kg
[2024-06-03 23:38] LABS: BASOPHILS # (AUTO) 0.1 X10'3 (0-0.2); BASOPHILS % (AUTO) 0.3 % (0-1); EOSINOPHILS % (AUTO) 0.2 % (0-6); HEMATOCRIT 46.4 % (42.0-52.0); HEMOGLOBIN 15.5 g/dl (14.0-17.9); LYMPHOCYTES # (AUTO) 2.3 X10'3 (1.1-4.8); LYMPHOCYTES % (AUTO) 12.5 % (21-51); MEAN CORPUSCULAR HEMOGLOBIN 31.4 PG (27.0-31.0); MEAN CORPUSCULAR HGB CONC 33.4 g/dL (33.0-36.5); MEAN CORPUSCULAR VOLUME 94.2 FL (78-98); MEAN PLATELET VOLUME 7.9 FL (7.4-10.4); MONOCYTES # (AUTO) 0.6 X10'3 (0-0.9); MONOCYTES % (AUTO) 3.4 % (2-12); NEUTROPHILS # (AUTO) 15.2 X10'3 (1.8-7.7); NEUTROPHILS % (AUTO) 83.6 % (42-75); PLATELET COUNT 266 X10'3 (140-440); RED BLOOD COUNT 4.93 X10'6 (4.70-6.10); RED CELL DISTRIBUTION WIDTH 13.3 % (11.5-14.5); WHITE BLOOD COUNT 18.2 X10'3 (4.5-11.0)
[2024-06-03 23:39] LABS: ALBUMIN 4.9 G/DL (3.4-5.0); ANION GAP 11 (8-16); BLOOD UREA NITROGEN 19 MG/DL (7-18); BUN/CREATININE RATIO 16.7 (10.0-20.0); CALCIUM 9.2 MG/DL (8.5-10.1); CHLORIDE 106 MMOL/L (99-107); CREATININE 1.14 MG/DL (0.60-1.10); GLUCOSE 114 MG/DL (70-104); POTASSIUM 4.5 MMOL/L (3.5-5.1); SODIUM 142 MMOL/L (135-145); TOTAL CARBON DIOXIDE 25.2 MMOL/L (24-32); eCRCL 87 ML/MIN; eGFR 76 ML/MIN
[2024-06-04] MEDS ORDERED: levetiracetam inj 1,000 MG in normal saline 100ml IV soln 100 ML IV ONE (00:20)
[2024-06-04 00:42] LABS: BILIRUBIN,URINE NEGATIVE (Neg); CLARITY,URINE CLEAR (Clear); COLOR,URINE YELLOW (Yellow); GLUCOSE, URINE NEGATIVE (Neg); KETONES,URINE TRACE mg/dl (Neg); LEUKOCYTE ESTERASE ,URINE NEGATIVE (Neg); NITRITES, URINE NEGATIVE (Neg); OCCULT BLOOD,URINE NEGATIVE (Neg); PH,URINE 5.5 (4.8-8.0); PROTEIN,URINE 100 mg/dl (Neg)
[2024-06-04] MEDS: levetiracetam-NS 1000mg/100ml 100 ML IV ONE (00:43)
[2024-06-04 00:48] LABS: UA COLLECTION TYPE VOIDED
[2024-06-04 00:49] LABS: BACTERIA,URINE NONE SEEN /HPF (Neg); MUCUS STRANDS FEW /LPF (Neg); RBC,URINE NONE SEEN /HPF (0-2); RENAL CELLS, URINE FEW /HPF; SQUAMOUS EPITHELIAL CELL,UR FEW /LPF (FEW); TRANSITIONAL EPI CELLS,URINE FEW /HPF; WBC,URINE 0-4 /HPF (0-4)
[2024-06-04 00:50] LABS: FINE GRANULAR CAST 0-3 /LPF (NEGATIVE)
[2024-06-04 00:56] LABS: URINE AMPHETAMINE SCREEN NEGATIVE (Neg); URINE BARBITUATE SCREEN NEGATIVE (Neg); URINE BENZODIAZEPINES SCREEN NEGATIVE (Neg); URINE CANNABINOID SCREEN POSITIVE (Neg); URINE COCAINE SCREEN NEGATIVE (Neg); URINE METHADONE SCREEN NEGATIVE (Neg); URINE OPIATE SCREEN NEGATIVE (Neg); URINE PHENCYCLIDINE SCREEN NEGATIVE (Neg)
[2024-06-04 01:31] VITALS: BP 146/97; PULSE 83; RESP 18; TEMP 97.8; O2SAT 100
== END 2024-06-04 01:15 | disposition home or self-care (01) ==
LOC: ER 22:52
DX: R41.82 Altered mental status, unspecified (principal)
CPT/HCPCS: 36415; 71045; 80048; 80305; 81001; 84145; 85025; 96365; 99284; J1953

== ENCOUNTER 2024-10-26 08:59 | Emergency (ER) | payer MEDICAID ==
[~2024-10-26] VITALS: Ht 172.7 cm; Wt 64.6 kg
[2024-10-26 09:04] VITALS: TEMP 98.2
[2024-10-26] MEDS: ketorolac trometh 30MG/ML vial 30 MG/ML VIAL IM ONE (09:52)
[2024-10-26] MEDS ORDERED: AMOX-580 PO (10:31)
[2024-10-26 10:39] VITALS: BP 124/76; PULSE 84; RESP 15; O2SAT 100
== END 2024-10-26 10:40 | disposition home or self-care (01) ==
LOC: ER 09:00
DX: K04.7 Periapical abscess without sinus (principal); K02.9 Dental caries, unspecified; G43.909 Migraine, unspecified, not intractable, without status migrainosus; F41.9 Anxiety disorder, unspecified
CPT/HCPCS: 96372; 99283; J1885

== ENCOUNTER 2025-03-02 19:26 | Emergency (ER) | payer MEDICAID, OTHER ==
[~2025-03-02] VITALS: Ht 172.7 cm; Wt 52.5 kg
[2025-03-02 19:29] VITALS: BP 128/91; PULSE 98; RESP 15; TEMP 96.8; O2SAT 98
--- NOTE | 2025-03-02 20:08 | Physician Documentation ---
HPI ~ General Chief Complaint: Tooth Problem Stated Complaint: TOOTH PAIN Time Seen by MD: 20:15 OK to notify your PCP?: No Primary Medical Doctor: TABITHA Jimenez NEUROLOGY History of Present Illness HPI Comment 30-year-old male presents to the ED with a complaint of left-sided molar pain and swelling. States he has had ongoing attempt issues on his upper left back molar.. Trying to get to a dentist but is having difficulty Medication Reconciliation Allergies: Coded Allergies: No Known Allergies (Unverified , 03/02/25) Scheduled Buspirone Hcl (Buspirone Hcl), 1 TAB PO BID, (Reported) Sertraline HCl (Sertraline HCl), 1 TAB PO DAILY, (Reported) Trazodone HCl (Trazodone HCl), 1 TAB PO HS, (Reported) Past Medical History Past Medical History: Migraine, Anxiety Past Surgical History: noncontributory, other Alcohol Use: None Drug Use: none Lives with: Family Lives In: Home Review of Systems All Other Systems at this time: Reviewed and Negative ROS As stated above in the HPI, otherwise all systems are reviewed and negative. Physical Exam Vital Signs: Temperature: 96.8, Source: Temporal, Heart Rate: 98, Respiratory Rate: 15, BP: 128/91, Pulse Oximetry: 98, Weight: 52.450 Physical Exam General: Alert, no apparent distress. HEENT: PERRL, EOMI, no injection, moist mucous membranes. Facial swelling left side no submandibular swelling Neck: Full range of motion. Neurologic: Oriented x4. Psychiatric: Normal mood and affect. Skin: Normal color, warm and dry. No edema, no ecchymosis. Progress Results/Orders Results/Orders Completed Orders - NIKOLAI DURAND NP Clindamycin Capsule (Cleocin Capsule) (03/02/25 20:05) Vital Signs 03/02/25 19:29 Temp 96.8 Pulse 98 Resp 15 B/P (MAP) 128/91 Pulse Ox 98 Departure Disposition: 01 HOME / SELF CARE / HOMELESS Impression: Primary Impression: Toothache Additional Impression: Disturbances in tooth eruption Condition: Stable Discharge Instructions: Dental Caries, Adult, Dental Abscess Referrals: NO PRIMARY CARE PROVIDER (PCP) Prescriptions Clindamycin HCl (Cleocin HCl) 300 Mg Capsule 1 CAP PO Q8H for 10 Days, #30 CAP Prov: NIKOLAI DURAND NP 03/02/25 Education Educated: Patient Educated regarding: diagnosis Signature Scribe Signature: t Attestation: Scribed for Emergency,Department by Nikolai Durand - [facility]LLY . 03/02/25 20:11 NIKOLAI DURAND NP Mar 02, 2025 20:08
[2025-03-02] MEDS ORDERED: CLIN300C3 PO (20:15)
== END 2025-03-02 20:21 | disposition home or self-care (01) ==
LOC: ER 19:27
DX: K08.89 Other specified disorders of teeth and supporting structures (principal); G43.909 Migraine, unspecified, not intractable, without status migrainosus; F41.9 Anxiety disorder, unspecified
CPT/HCPCS: 99283